=== PATIENT | female | born 1985 | race Caucasian/White ===

== ENCOUNTER 2023-05-21 19:30 | Emergency (ER) | payer OTHER ==
[2023-05-21 19:36] VITALS: BP 105/72; PULSE 75; RESP 18; TEMP 97.9; BMI 34.3
[2023-05-21] MEDS ORDERED: morphine CARPU-JECT 2 MG/1 ML DISP.SYRIN IVPUSH ONE (20:21)
[2023-05-21] MEDS ORDERED: SODIUM CHLORIDE 0.9% 500 ML INFUS.BAG IV ONE (20:21)
[2023-05-21] MEDS ORDERED: ACETAMINOPHEN 1000 MG/100 ML BAG IVPB ONE (20:49)
[2023-05-21] MEDS ORDERED: ACETAMINOPHEN INJECTION 100 ML IVPB ONE (20:55)
[2023-05-21 21:06] LABS: BASO % 0.9 % (0-2.0); EOS % 0.9 % (0-4.5); HEMATOCRIT 40.9 % (32.4-45.2); HEMOGLOBIN 12.6 GM/dL (10.7-15.3); LYMPH % 19.6 % (8-40); MCH 22.5 pg (25.7-33.7); MCHC 30.8 g/dl (32.0-36.0); MONO % 6.3 % (3.8-10.2); NEUT % 72.3 % (42.8-82.8); PLATELET COUNT 435 10^3/uL (134-434); RBC 5.61 M/mm3 (3.60-5.2); RDW 13.8 % (11.6-15.6)
[2023-05-21 21:17] LABS: POTASSIUM 4.7 mmol/L (3.5-5.1)
[2023-05-21 21:18] LABS: CALCIUM 10.1 mg/dL (8.5-10.1)
[2023-05-21 21:19] LABS: ALBUMIN 2.8 g/dl (3.4-5.0); BLOOD UREA NITROGEN 11.4 mg/dL (7-18)
[2023-05-21 21:24] LABS: BILIRUBIN,TOTAL 0.2 mg/dL (0.2-1); TOT PROT 7.6 g/dl (6.4-8.2)
== END 2023-05-22 00:05 | disposition home or self-care (01) ==
LOC: JER 19:30 → JERFT 19:30 → JER 05-22 00:05
PROC: 3E033NZ Introduction of Analgesics, Hypnotics, Sedatives into Peripheral Vein, Percutaneous Approach (ICD-10-PCS; principal; 2023-05-21)
DX: R07.89 Other chest pain (principal); R10.11 Right upper quadrant pain; K80.20 Calculus of gallbladder without cholecystitis without obstruction
CPT/HCPCS: 36415; 76705-TC; 80053; 83690; 84484; 84703; 85025; 93005; 93010; 99285-25